=== PATIENT | male | born 1965 | race Caucasian/White ===

== ENCOUNTER 2020-11-03 21:20 | Emergency (ER) | payer BC ==
[~2020-11-03] VITALS: Ht 172.7 cm; Wt 90.7 kg
[~2020-11-03 21:20] MED LIST: GEMF600T89 PO
[2020-11-03 21:50] VITALS: BP_SYST 141
--- NOTE | 2020-11-03 21:55 | NUR ---
Patient triaged and placed in waiting room. VSS and patient appears in no acute distress at this time. Accompanied by family, awaiting available bed, and MD notified of need for MSE.
--- NOTE | 2020-11-03 23:21 | NUR ---
Patient wheeled to bed 4 for evaluation
--- NOTE | 2020-11-03 23:28 | NUR ---
Dr. Diggs [facility] for pt eval
--- NOTE | 2020-11-03 23:29 | NUR ---
Pt BIB family to ED C/O pain and redness, pain and swetting to rt foot since Friday. Self medicated with Motrin at home, minimal effectiveness. VSS no s/s of acute distress Resting on [employer] rails up
[2020-11-03] MEDS ORDERED: NACL 0.9% 1,000 ML IV ONE (23:45)
[2020-11-03] MEDS ORDERED: cefTRIAXone 1 GM in D5W 50 ML IV ONE (23:45)
[2020-11-03] MEDS ORDERED: KETOROLAC TROMETHAMINE 30 MG VIAL IVP ONE (23:45)
[2020-11-04] MEDS ORDERED: cefTRIAXone 1 GM VIAL ONE (00:05)
--- NOTE | 2020-11-04 00:13 | NUR ---
IVF and meds well tolerated, VSS no s/s of acute distress
[2020-11-04 00:16] LABS: BASOPHILS # (AUTO) 0.1 K/uL (0.0-0.2); BASOPHILS % (AUTO) 0.5 % (0.0-2.0); EOSINOPHILS # (AUTO) 0.2 K/uL (0.0-0.4); EOSINOPHILS % (AUTO) 1.7 % (0.0-4.0); HEMATOCRIT 33.9 % (36-54); HEMOGLOBIN 11.7 g/dL (14.0-18.0); LYMPHOCYTES # (AUTO) 2.3 K/uL (1.0-5.5); LYMPHOCYTES % (AUTO) 23.5 % (20.5-51.5); MEAN CORPUSCULAR HEMOGLOBIN 31 pg (27-31); MEAN CORPUSCULAR HGB CONC 35 % (32-36); MEAN CORPUSCULAR VOLUME 90 fL (79.0-98.0); MONOCYTES # (AUTO) 0.8 K/uL (0.0-1.0); MONOCYTES % (AUTO) 8.2 % (1.7-9.3); NEUTROPHILS # (AUTO) 6.4 K/uL (1.8-7.7); NEUTROPHILS % (AUTO) 66.1 % (40.0-70.0); PLATELET COUNT (AUTO) 172 K/uL (130-430); RED BLOOD CELL COUNT(AUTO) 3.78 MIL/uL (4.2-6.2); RED CELL DISTRIBUTION WIDTH 13.8 % (9.0-15.0); WHITE BLOOD COUNT (AUTO) 9.6 K/uL (4.8-10.8)
[2020-11-04 00:26] LABS: CALCIUM 8.6 mg/dL (8.4-11.0); CREATININE 0.73 mg/dL (0.55-1.30); POTASSIUM 3.8 mmol/L (3.5-5.1)
[2020-11-04 00:32] LABS: ALBUMIN 3.6 g/dL (3.4-4.8); TOTAL BILIRUBIN 0.2 mg/dL (0.0-1.0)
[2020-11-04] MEDS ORDERED: cefTRIAXone 1 GM in D5W 50 ML IV ONE (01:15)
--- NOTE | 2020-11-04 01:15 | NUR ---
VSS no s/s of acute distress Resting on gurney rails up
[2020-11-04 01:23] LABS: ERYTHROCYTE SEDIMENTATION RATE 18 MM/HR (0-15)
[2020-11-04] MEDS ORDERED: HYDR-3917 PO (01:44)
[2020-11-04] MEDS ORDERED: IBUP-1969 PO (01:44)
[2020-11-04] MEDS ORDERED: CEPH250C PO (01:44)
[2020-11-04 02:15] VITALS: BP_SYST 142
--- NOTE | 2020-11-04 02:15 | NUR ---
Patient given written and verbal discharge instructions and verbalizes understanding. ER MD discussed with patient the results and treatment provided. Patient in stable condition. ID arm band removed. IV catheter removed intact and dressing applied, no active bleeding. Rx of Keflex, [place] and Motrin given. Patient educated on pain management and to follow up with PMD. Pain Scale 0/10 Opportunity for questions provided and answered. Medication side effect fact sheet provided.
== END 2020-11-04 02:15 | disposition home or self-care (01) ==
LOC: SED 21:20
DX: L03.115 Cellulitis of right lower limb (principal); I10 Essential (primary) hypertension; Z79.899 Other long term (current) drug therapy
CPT/HCPCS: 36415; 80053; 82962; 85025; 85651; 96365; 96375; 99284; J0696; J1885

== ENCOUNTER 2022-10-30 20:22 | Emergency (ER) | payer BC ==
[~2022-10-30] VITALS: Ht 172.7 cm; Wt 95.3 kg
[~2022-10-30 20:22] MED LIST changes: +CEPH250C PO; +HYDR-3917 PO; +IBUP-1969 PO
[2022-10-30 20:29] VITALS: BP_SYST 143
[2022-10-30] MEDS ORDERED: KETOROLAC TROMETHAMINE 30 MG VIAL IM ONE (21:00)
[2022-10-30] MEDS ORDERED: predniSONE 20 MG TABLET PO ONE (21:00)
[2022-10-30] MEDS ORDERED: COLCHICINE 0.6 MG TABLET PO ONE (21:00)
[2022-10-30] MEDS ORDERED: COLCHICINE 0.6 MG TABLET ONE (21:14)
[2022-10-30] MEDS ORDERED: PRED20TA PO (21:15)
[2022-10-30] MEDS ORDERED: COLC0.6C PO (21:15)
[2022-10-30] MEDS ORDERED: NAPR-688 PO (21:15)
[2022-10-30 21:37] VITALS: BP_SYST 138
== END 2022-10-30 21:37 | disposition home or self-care (01) ==
LOC: SED 20:22
DX: M10.9 Gout, unspecified (principal); M25.561 Pain in right knee; E11.9 Type 2 diabetes mellitus without complications; I10 Essential (primary) hypertension; Z79.899 Other long term (current) drug therapy
CPT/HCPCS: 99283; 96372; J7512; J1885

== ENCOUNTER 2023-03-10 08:41 | Emergency (ER) | payer BC ==
[~2023-03-10] VITALS: Ht 172.7 cm; Wt 95.3 kg
[~2023-03-10 08:41] MED LIST changes: +COLC0.6C PO; +NAPR-688 PO; +PRED20TA PO
[2023-03-10 08:43] VITALS: BP_SYST 152; PULSE 64; RESP 22; TEMP 98.4; O2SAT 98
[2023-03-10] MEDS ORDERED: predniSONE 20 MG TABLET PO ONE (09:00)
[2023-03-10] MEDS ORDERED: IPRATROPIUM BROM 0.5 MG/2.5 ML VIAL.NEB (ATROVENT) INH ONE (09:00)
[2023-03-10] MEDS ORDERED: ALBUTEROL SULFATE 0.083% 2.5 MG/3 ML VIAL.NEB INH ONE (09:00)
[2023-03-10 09:22] LABS: INFLUENZA TYPE A Negative (NEGATIVE); INFLUENZA TYPE B NEGATIVE (NEGATIVE)
[2023-03-10] MEDS ORDERED: predniSONE 20 MG TABLET ONE (09:24)
[2023-03-10 09:25] LABS: BASOPHILS # (AUTO) 0.1 K/uL (0.0-0.2); BASOPHILS % (AUTO) 0.5 % (0.0-2.0); EOSINOPHILS # (AUTO) 0.2 K/uL (0.0-0.4); EOSINOPHILS % (AUTO) 2.2 % (0.0-4.0); HEMATOCRIT 39.7 % (36-54); LYMPHOCYTES # (AUTO) 2.1 K/uL (1.0-5.5); LYMPHOCYTES % (AUTO) 19.8 % (20.5-51.5); MEAN CORPUSCULAR HEMOGLOBIN 29 pg (27-31); MEAN CORPUSCULAR HGB CONC 33 % (32-36); MEAN CORPUSCULAR VOLUME 90 fL (79.0-98.0); MONOCYTES # (AUTO) 0.6 K/uL (0.0-1.0); MONOCYTES % (AUTO) 5.4 % (1.7-9.3); NEUTROPHILS # (AUTO) 7.8 K/uL (1.8-7.7); NEUTROPHILS % (AUTO) 72.1 % (40.0-70.0); PLATELET COUNT (AUTO) 195 K/uL (130-430); RED BLOOD CELL COUNT(AUTO) 4.42 MIL/uL (4.2-6.2); RED CELL DISTRIBUTION WIDTH 13.4 % (9.0-15.0); WHITE BLOOD COUNT (AUTO) 10.8 K/uL (4.8-10.8)
[2023-03-10 09:39] LABS: ANION GAP 7 (5-15); CALCIUM 9.3 mg/dL (8.4-11.0); CARBON DIOXIDE 27 mmol/L (23-29); CHLORIDE 104 mmol/L (98-107); CREATININE 0.88 mg/dL (0.55-1.30); GFR AFRICAN AMERICAN 114 mL/min (>90); GLUCOSE 167 mg/dL (74-106); POTASSIUM 3.9 mmol/L (3.5-5.1); SODIUM SERUM 138 mmol/L (136-145); UREA NITROGEN, BLOOD 12 mg/dL (8-21)
[2023-03-10 09:42] LABS: GFR NON AFRICAN-AMERICAN 94 mL/min (>90)
[2023-03-10 09:43] LABS: ALANINE AMINOTRANSFERASE 28 U/L (12-78); ALBUMIN 3.7 g/dL (3.4-4.8); ASPARTATE AMINOTRANSFERASE 15 U/L (10-37)
[2023-03-10 10:00] LABS: TOTAL BILIRUBIN 0.3 mg/dL (0.0-1.0); TOTAL PROTEIN, SERUM 7.2 g/dL (6.4-8.3)
[2023-03-10] MEDS ORDERED: ALBMDI INH (10:11)
[2023-03-10] MEDS ORDERED: PRED20TA PO (10:11)
[2023-03-10] MEDS ORDERED: CLINDAMYCIN 600 mg/50mL D5W 50 ML IV ONE (11:03)
[2023-03-10 11:10] VITALS: O2SAT 95
[2023-03-10 11:33] VITALS: BP_SYST 143; PULSE 74; RESP 19; TEMP 98
== END 2023-03-10 11:32 | disposition home or self-care (01) ==
LOC: SED 08:41
DX: J40 Bronchitis, not specified as acute or chronic (principal); R05.9 Cough, unspecified; R09.81 Nasal congestion; R06.02 Shortness of breath; E11.9 Type 2 diabetes mellitus without complications; I10 Essential (primary) hypertension; Z79.899 Other long term (current) drug therapy; Z20.822 Contact with and (suspected) exposure to COVID-19
CPT/HCPCS: 99285; 71045; 87426; 80053; 83880; 85025; 84484; 36415; 94640; 87804 ×2; J7512; J3490

== ENCOUNTER 2023-12-09 14:48 | Inpatient (IN) | payer BC ==
[~2023-12-09] VITALS: Ht 172.7 cm; Wt 96.4 kg
[~2023-12-09 14:48] MED LIST changes: +ALBMDI INH
[2023-12-09 15:10] VITALS: BP_SYST 145; PULSE 73; RESP 16; TEMP 97.1; O2SAT 97
[2023-12-09] MEDS: ASPIRIN 81 MG TAB.CHEW PO ONE (15:31)
[2023-12-09] MEDS: MORPHINE 4 MG INJ. 4 MG/ML VIAL IVP ONE ×2 (15:57→17:59)
[2023-12-09 15:58] LABS: BASOPHILS # (AUTO) 0.1 K/uL (0.0-0.2); EOSINOPHILS # (AUTO) 0.2 K/uL (0.0-0.4); EOSINOPHILS % (AUTO) 2.1 % (0.0-4.0); HEMATOCRIT 36.5 % (36-54); HEMOGLOBIN 12.8 g/dL (14.0-18.0); LYMPHOCYTES # (AUTO) 1.7 K/uL (1.0-5.5); LYMPHOCYTES % (AUTO) 21.1 % (20.5-51.5); MEAN CORPUSCULAR HEMOGLOBIN 31 pg (27-31); MEAN CORPUSCULAR HGB CONC 35 % (32-36); MEAN CORPUSCULAR VOLUME 89 fL (79.0-98.0); MONOCYTES # (AUTO) 0.6 K/uL (0.0-1.0); MONOCYTES % (AUTO) 6.8 % (1.7-9.3); NEUTROPHILS # (AUTO) 5.6 K/uL (1.8-7.7); PLATELET COUNT (AUTO) 220 K/uL (130-430); RED BLOOD CELL COUNT(AUTO) 4.09 MIL/uL (4.2-6.2); RED CELL DISTRIBUTION WIDTH 13.3 % (9.0-15.0); WHITE BLOOD COUNT (AUTO) 8.2 K/uL (4.8-10.8)
[2023-12-09 16:01] LABS: ALBUMIN 3.7 g/dL (3.4-4.8); BILIRUBIN,DIRECT 0.1 mg/dL (0.0-0.3); CREATININE 0.84 mg/dL (0.55-1.30); POTASSIUM 3.8 mmol/L (3.5-5.1); TOTAL BILIRUBIN 0.3 mg/dL (0.0-1.0); TOTAL PROTEIN, SERUM 7.2 g/dL (6.4-8.3)
[2023-12-09 16:07] LABS: URIC ACID 6.1 mg/dL (2.4-7.0)
[2023-12-09] MEDS ORDERED: ACETAMINOPHEN 325 MG TABLET PO PRN (17:30)
[2023-12-09] MEDS ORDERED: ONDANSETRON HCL 4 MG/2 ML VIAL IVP PRN (17:30)
[2023-12-09] MEDS ORDERED: LORazepam 2 MG/ML VIAL IVP PRN (17:30)
[2023-12-09] MEDS ORDERED: GLIM2TAB PO (17:37)
[2023-12-09] MEDS ORDERED: ATOR40TA68 PO (17:37)
[2023-12-09] MEDS ORDERED: ENAL-75 PO (17:37)
[2023-12-09] MEDS ORDERED: SIMV-341 (17:39)
[2023-12-09] MEDS: NACL 0.9% 1,000 ML IV SCH (18:20)
[2023-12-09] MEDS ORDERED: PIPERACILLIN/TAZOBACTAM 3.375 GM/VIAL (ZOSYN) IV ONE (18:26)
[2023-12-09] MEDS: PIPERACILLIN/TAZO 3.375/DEX-IS 50 ML IV ONE (18:34)
[2023-12-09] MEDS: PIPERACILLIN/TAZO 3.375 GM in NS 50 ML IV ONE (18:34)
[2023-12-09] MEDS: VANCOMYCIN HCL 1,500 MG in NS 250 ML IV ONE (19:10)
[2023-12-09 20:15] VITALS: BP_SYST 137; PULSE 59; RESP 18; TEMP 97.7
[2023-12-09 20:35] VITALS: BP_SYST 137; PULSE 59; RESP 18; TEMP 97.7
[2023-12-09] MEDS: MORPHINE 2 MG/ML INJ. SYRINGE IVP PRN (20:56)
[2023-12-09 21:57] VITALS: O2SAT 100
[2023-12-09 22:36] VITALS: O2SAT 100
[2023-12-09] MEDS: PIPERACILLIN/TAZOBACTAM 3.375 GM/VIAL (ZOSYN) IV ONE (23:07)
[2023-12-09] MEDS: PIPERACILLIN/TAZO 3.375/DEX-IS 50 ML IV SCH (23:29)
[2023-12-10] VITALS (7 sets, daily range): BP systolic 118–162; PULSE 55–88; RESP 16–20; TEMP 96.4–98.8; O2SAT 97–100
[2023-12-10 06:35] LABS: BASOPHILS % (AUTO) 0.3 % (0.0-2.0); EOSINOPHILS # (AUTO) 0.2 K/uL (0.0-0.4); EOSINOPHILS % (AUTO) 3.2 % (0.0-4.0); HEMATOCRIT 32.8 % (36-54); HEMOGLOBIN 11.3 g/dL (14.0-18.0); LYMPHOCYTES # (AUTO) 1.9 K/uL (1.0-5.5); LYMPHOCYTES % (AUTO) 26.9 % (20.5-51.5); MEAN CORPUSCULAR HEMOGLOBIN 31 pg (27-31); MEAN CORPUSCULAR HGB CONC 34 % (32-36); MEAN CORPUSCULAR VOLUME 91 fL (79.0-98.0); MONOCYTES # (AUTO) 0.6 K/uL (0.0-1.0); NEUTROPHILS # (AUTO) 4.3 K/uL (1.8-7.7); NEUTROPHILS % (AUTO) 61.6 % (40.0-70.0); PLATELET COUNT (AUTO) 183 K/uL (130-430); RED BLOOD CELL COUNT(AUTO) 3.62 MIL/uL (4.2-6.2); RED CELL DISTRIBUTION WIDTH 13.1 % (9.0-15.0)
[2023-12-10 08:04] LABS: ALBUMIN 3.1 g/dL (3.4-4.8); CALCIUM 8.5 mg/dL (8.4-11.0); CREATININE 0.76 mg/dL (0.55-1.30); POTASSIUM 3.9 mmol/L (3.5-5.1); TOTAL BILIRUBIN 0.3 mg/dL (0.0-1.0); TOTAL PROTEIN, SERUM 6.1 g/dL (6.4-8.3)
[2023-12-10] MEDS: HYDROcodone/ACETAMIN 5-325 MG TAB (NORCO/ VICODIN) PO PRN (12:58)
[2023-12-10] MEDS: METHYLPREDNISOLONE SOD SUCC 40 MG/ML VIAL IVP ONE (15:14)
[2023-12-10] MEDS: ATORVASTATIN 20 MG TABLET PO ONE (21:37)
[2023-12-10] MEDS: lisinopriL 5 MG TABLET PO ONE (21:37)
[2023-12-10] MEDS: GEMFIBROZIL 600 MG TABLET (LOPID) PO ONE (21:38)
[2023-12-11 08:30] VITALS: O2SAT 97
[2023-12-11 09:05] VITALS: BP_SYST 165; PULSE 69; RESP 16; TEMP 96.8; O2SAT 100
[2023-12-11] MEDS ORDERED: PRED20TA PO (09:44)
[2023-12-11] MEDS ORDERED: IBUP-1969 PO (09:44)
[2023-12-11] MEDS: GEMFIBROZIL 600 MG TABLET (LOPID) PO SCH (09:56)
[2023-12-11] MEDS: GLIMEPIRIDE 2 MG TABLET PO SCH (09:57)
[2023-12-11] MEDS: lisinopriL 5 MG TABLET PO SCH (09:57)
[2023-12-11] MEDS: ATORVASTATIN 20 MG TABLET PO SCH (10:03)
[2023-12-11 11:02] VITALS: BP_SYST 142; PULSE 62; RESP 16; TEMP 97.5; O2SAT 99
[2023-12-11 12:40] VITALS: BP_SYST 142; PULSE 62; RESP 16; TEMP 97.5; O2SAT 99
== END 2023-12-11 13:40 | disposition home or self-care (01) | DRG 554 ==
LOC: SED 14:48 → SMU 17:25
PROVIDERS: ADMIT Student in an Organized Health Care Education/Training Program; ATTEND Student in an Organized Health Care Education/Training Program
DX: M10.9 Gout, unspecified (principal); M13.0 Polyarthritis, unspecified; I10 Essential (primary) hypertension; E78.00 Pure hypercholesterolemia, unspecified; E11.65 Type 2 diabetes mellitus with hyperglycemia; R07.89 Other chest pain; Z82.49 Family history of ischemic heart disease and other diseases of the circulatory system; Z83.3 Family history of diabetes mellitus
CPT/HCPCS: 36415; 71045; 80048; 80053; 80076; 83690; 83880; 84484; 84550; 85025; 87040; 93005; 96365; 99285; J1030; J2270; J2543; J3370; J7050